=== PATIENT | female | born 1975 | race Caucasian/White ===

== ENCOUNTER → 2023-09-21 19:07 | Outpatient (REF) | payer BC, SELFPAY | LOC: WDC 19:07 | PROVIDERS: ATTENDING PHYSICIAN Nurse Practitioner Family | DX: Z12.31 Encounter for screening mammogram for malignant neoplasm of breast (principal) | CPT/HCPCS: 77063; 77067 ==

== ENCOUNTER → 2024-10-03 18:39 | Outpatient (REF) | payer BC, SELFPAY | LOC: WDC 18:39 | PROVIDERS: ATTENDING PHYSICIAN Obstetrics & Gynecology Gynecology; FAMILY PHYSICIAN Nurse Practitioner Family | DX: Z12.31 Encounter for screening mammogram for malignant neoplasm of breast (principal) | CPT/HCPCS: 77063; 77067 ==